=== PATIENT | female | born 1955 | race Caucasian/White ===

== ENCOUNTER → 2023-07-11 | Outpatient (CLI) | payer MEDICARE ==
--- NOTE | 2023-07-12 09:35 | MM ---
Reason for Exam: Screening (asymptomatic). Last mammogram was performed 1 year(s) and 2 month(s) ago. Patient History: Menarche at age 13. First Full-Term at age 23. Left ovary removed at age 47. Hysterectomy at age 38. Postmenopausal. Risk Values: Lakeisha 5 year model risk: 1.6%. NCI Lifetime model risk: 5.9%. Prior Study Comparison: 03/17/2021 Bilateral Screening Mammogram, Unknown. 05/12/2022 Bilateral Screening Mammogram, Unknown. Tissue Density: The breast tissue is almost entirely fat. Findings: Analyzed By CAD. There is no suspicious group of microcalcifications or new suspicious mass. Overall Assessment: Negative, BI-RAD 1 Management: Screening Mammogram of both breasts in [address] [facility] will attempt to contact patient to return for supplemental views and ultrasound if indicated. Patient should continue monthly self-breast exams. A clinical breast exam by your physician is recommended on an annual basis. This exam should not preclude additional follow-up of suspicious palpable abnormalities. Note on Lakeisha scores and lifetime risk: 1. A Lakeisha score greater than 3% is considered moderate risk. If this is the case, consider specialist referral to assess eligibility for a risk reducing agent. 2. If overall lifetime risk for the development of breast cancer is 20% or higher, the patient may qualify for future screening with alternating mammogram and breast MRI. Electronically signed and approved by: Jeancarlos Mims DO
== END | disposition home or self-care (01) ==
LOC: RADMAMWWP 08:30
PROVIDERS: ATTEND Family Medicine
DX: Z12.31 Encounter for screening mammogram for malignant neoplasm of breast (principal); Z78.0 Asymptomatic menopausal state
CPT/HCPCS: 77063; 77067

== ENCOUNTER → 2024-09-26 | Outpatient (CLI) | payer MEDICARE ==
--- NOTE | 2024-09-30 14:20 | MM ---
Reason for Exam: Screening (asymptomatic). Last mammogram was performed 1 year(s) and 2 month(s) ago. Patient History: Menarche at age 13. First Full-Term at age 23. Left ovary removed at age 47. Hysterectomy at age 38. Postmenopausal. Risk Values: Lakeisha 5 year model risk: 1.7%. NCI Lifetime model risk: 5.7%. Prior Study Comparison: 03/17/2021 Bilateral Screening Mammogram, Unknown. 05/12/2022 Bilateral Screening Mammogram, Unknown. 07/11/2023 Bilateral MG 3D screening mammo w/cad, [facility]. Tissue Density: There are scattered areas of fibroglandular density. Findings: Analyzed By CAD. There is no suspicious group of microcalcifications or new suspicious mass in either breast. Overall Assessment: Negative, BI-RAD 1 Management: Screening Mammogram of both breasts in 1 year. . Patient should continue monthly self-breast exams. A clinical breast exam by your physician is recommended on an annual basis. This exam should not preclude additional follow-up of suspicious palpable abnormalities. Note on Lakeisha scores and lifetime risk: 1. A Lakeisha score greater than 3% is considered moderate risk. If this is the case, consider specialist referral to assess eligibility for a risk reducing agent. 2. If overall lifetime risk for the development of breast cancer is 20% or higher, the patient may qualify for future screening with alternating mammogram and breast MRI. [facility], , 09/26/2024 9:55 AM. Electronically signed and approved by: Igor Rodriguez M.D. Radiologis
== END | disposition home or self-care (01) ==
LOC: RADMAMWWP 09:34
PROVIDERS: ATTEND Family Medicine
DX: Z12.31 Encounter for screening mammogram for malignant neoplasm of breast (principal); R92.323 Mammographic fibroglandular density, bilateral breasts; Z78.0 Asymptomatic menopausal state
CPT/HCPCS: 77063; 77067

== ENCOUNTER → 2024-11-18 | Outpatient (CLI) | payer MEDICARE ==
--- NOTE | 2024-11-18 17:12 | BD ---
EXAMINATION TYPE: Axial Bone Density DATE OF EXAM: 11/18/2024 CLINICAL HISTORY: 69 years old Female. ICD-10 CODE: M85.89 OTH SPEC DISORDERS OF BONE DENSITY , Derik tional History: Height: 64.5 in Weight: 194 lbs FRAX RISK QUESTIONS: Secondary Osteoporosis: 3. Menopause before 45: partial hysterectomy age 38 EXAM MEASUREMENTS: Bone mineral densitometry was performed using the [employer] System. Bone mineral density as measured about the Lumbar spine is: ----- L1-L4(G/cm2): 1.121 T Score Values are as follows: ----- L1: -1.5 ----- L2: -0.9 ----- L3: -0.1 ----- L4: 0.0 ----- L1-L4: -0.5 Z Score Values are as follows: ----- L1: -0.7 ----- L2: 0.0 ----- L3: 0.7 ----- L4: 0.9 ----- L1-L4: 0.4 Bone mineral density baseline Bone mineral density about the R hip (g/cm2): 0.884 Bone mineral density about the L hip (g/cm2): 0.884 T Score values are as follows: -----R Neck: -1.2 -----L Neck: -2.0 -----R Total: -1.0 -----L Total: -1.0 Z Score values are as follows: -----R Neck: -0.1 -----L Neck: -0.9 -----R Total: -0.2 -----L Total: -0.2 Bone mineral density baseline FRAX%s: The graph provided illustrates a 10.8% chance for a major osteoporotic fx and a 1.8% chance f or the hips probability for fx in 10 years time. IMPRESSION: Osteopenia (T Score between -2.5 and -1). There is slightly increased risk of fracture and the patient may be considered for treatment. Re-Screen 2-5 years. NOTE: T-SCORE=SD OF THE YOUNG ADULT MEAN. [facility], , 11/18/2024 5:10 PM
== END | disposition home or self-care (01) ==
LOC: RADBDWWP 16:09
PROVIDERS: ATTEND Family Medicine
DX: M85.89 Other specified disorders of bone density and structure, multiple sites (principal); Z78.0 Asymptomatic menopausal state
CPT/HCPCS: 77080